=== PATIENT | female | born 1980 | race Caucasian/White ===

== ENCOUNTER 2018-11-20 11:39 | Emergency (ER) | payer MEDICAID, OTHER, SELFPAY ==
--- NOTE | 2018-11-20 12:59 | RAD ---
PA VIEW OF THE CHEST WITH 3 VIEWS OF THE RIGHT RIBS: INDICATION: Cough and right-sided rib pain. COMPARISON: None. FINDINGS: Lungs are clear. Cardiomediastinal silhouette is within normal limits. No displaced right-sided rib fracture is evident. No pneumothorax is evident. IMPRESSION: No acute abnormality. No displaced right-sided rib fracture. POS: [facility]
== END 2018-11-20 13:04 | disposition home or self-care (01) ==
LOC: ERS 11:39
DX: J20.9 Acute bronchitis, unspecified (principal); R07.81 Pleurodynia